=== PATIENT | female | born 2000 | race Caucasian/White ===

== ENCOUNTER 2023-11-15 15:28 | Emergency (ER) | payer OTHER, SELFPAY ==
[2023-11-15 16:33] VITALS: BP 131/91; PULSE 85; RESP 18; TEMP 36.6; O2SAT 100
--- NOTE | 2023-11-15 16:34 | ED.DENTAL ---
HPI - Dental/Oral General Chief complaint: Dental/Oral Stated complaint: tooth pain Time Seen by Provider: 11/15/23 16:34 Source: patient Mode of arrival: ambulatory Limitations: no limitations History of Present Illness HPI Narrative: This is a 23 year old female that presents to the ER for dentalgia ongoing over the last week. Reports her wisdom teeth have been very painful. She thought maybe she could have them removed here. She has not seen a dentist. Denies fevers or abnormal drainage. MD Complaint: tooth pain Location: Tooth # (17 and 32) Related Data Allergies Allergy/AdvReac Type Severity Reaction Status Date / Time No Known Allergies Allergy Verified 11/15/23 15:29 Review of Systems Review of Systems: CONSTITUTIONAL: Denies fever ENT: Reports dentalgia All systems reviewed & are unremarkable except as noted in HPI and below PMFSH Past Medical History Medical History (Updated 11/15/23 @ 17:00 by Isabella Pelaez PA-C) No active medical problems Social History Social History (Updated 11/15/23 @ 17:00 by Isabella Pelaez PA-C) Substance use: never Exam Narrative: GENERAL: Well-appearing, well-nourished, and in no acute distress. HEAD: Normocephalic, atraumatic. EYES: EOMI. ENT: Mucous membranes moist. Oropharynx without tonsillar hypertrophy exudate or other lesions. Teeth numbers 17 and 32 tender to palpation without surrounding erythema, fluctuance or edema NECK: Supple. No adenopathy or masses. EXTREMITIES: Normal range of motion. No edema. SKIN: Warm, dry, no rash. NEURO: No focal deficits. Alert and oriented x3. PSYCH: Normal mood and affect Course Course Emergency Course: Patient agrees with plan of care Vital Signs Vital signs: Vital Signs Temperature 97.9 F 11/15/23 16:33 Pulse Rate 85 11/15/23 16:33 Respiratory Rate 18 11/15/23 16:33 Blood Pressure 131/91 H 11/15/23 16:33 Pulse Oximetry 100 11/15/23 16:33 Oxygen Delivery Room Air 11/15/23 16:33 Temperature 97.9 F 11/15/23 16:33 Pulse Rate 85 11/15/23 16:33 Respiratory Rate 18 11/15/23 16:33 Blood Pressure 131/91 H 11/15/23 16:33 Pulse Oximetry 100 11/15/23 16:33 Oxygen Delivery Room Air 11/15/23 16:33 MDM - Dental/Oral MDM Narrative Medical decision making narrative: Patient presents to the ER for toothache ongoing over the last week. She is afebrile and nontoxic appearing. No concern for abscess on exam. Will be started on oral antibiotics and was instructed to follow up with a dentist. She was given warnings to return to the ER Differential Diagnosis Differential diagnosis: Likely dental caries, toothache and dental abscess Critical Care Time Critical Care Time Critical Care Time: No Discharge Plan Discharge Clinical Impression: Toothache Patient Disposition: Home, Self-Care Condition: Stable Instructions: Antibiotic Form, Toothache (ED) Additional Instructions: Return to the Emergency Department if you experience fever >101, increasing swelling and redness of your tooth, or any other symptoms that are concerning to you Take antibiotic as prescribed. Tylenol or Ibuprofen as needed for pain. Follow up with your dentist Prescriptions: New amoxicillin-pot clavulanate 875-125 mg tablet 1 tablet PO Q12H 7 Days Qty: 14 0RF Follow-up/Referrals: PHYSICIAN NOT ON STAFF,NONSTAFF [Non-Staff] -
== END 2023-11-15 17:04 | disposition home or self-care (01) ==
PROVIDERS: Emergency Provider Physician Assistant
DX: K08.89 Other specified disorders of teeth and supporting structures (principal)
CPT/HCPCS: 99283